=== PATIENT | female | born 1985 | race Two or more races ===

== ENCOUNTER 2016-10-19 11:50 | Emergency (ER) | payer OTHER ==
--- NOTE | ~2016-10-19 | ER ---
PATIENT'S NAME: JIMMY BASS [facility] AGE: 31 Y [address] ROOM: [place] [address] LOCATION: [facility] ADMIT DATE: 10/19/2016 ER/Outpatient Report DISCHARGE DATE: 10/19/2016 FAMILY PHYSICIAN: Lila Guevara MD ATTENDING PHYSICIAN: Chace Urbina Time of Arrival: 1157 hours. Time of Exam: 1210 hours. CHIEF COMPLAINT: Possible UTI. HISTORY OF PRESENT ILLNESS: The patient states that since Wednesday she has had pain and frequency with urination. Has not felt febrile, has not had any back pain. She has not any change in her bowel pattern. Has not been nauseated, no vomiting. ALLERGIES: NO KNOWN ALLERGIES. CURRENT MEDICATIONS: Taking [id number] AZO. PAST MEDICAL HISTORY: Benign. PAST SURGICAL HISTORY: Negative. SOCIAL HISTORY: She denies use of tobacco, drugs, or alcohol. REVIEW OF SYSTEMS: Negative other than those mentioned in the HPI. LABORATORY DATA: Clean-catch UA was obtained, which has 500 leukocytes, negative nitrites. Micro shows full-field white blood cells with moderate bacteria. Urine was completed, it was negative. IMPRESSION: Urinary tract infection. PLAN: A prescription was written for Bactrim DS. Home, rest. Increase her fluids. PATIENT'S NAME: JIMMY BASS [facility] AGE: 31 Y [address] ROOM: [place] [address] LOCATION: [facility] ADMIT DATE: 10/19/2016 ER/Outpatient Report DISCHARGE DATE: 10/19/2016 FAMILY PHYSICIAN: Lila Guevara MD ATTENDING PHYSICIAN: Chace Urbina Tylenol or ibuprofen as needed for fever or discomfort. Follow up with her primary provider in next 2 or 3 days if symptoms persist or worsen. She verbalized understanding. BARBARA COOMBS APRN FOR MD KIRSTIN WILCOX/rosa /[id number] d: 10/19/162201 t: 10/28/16 1058, OUTPATIENT REPORT
[~2016-10-19 11:50] MED LIST: ACETAMINOPHEN325 MG PO; FEOSOL325 MG PO; MOTRIN800 MG PO; PERCOCET 5-3251 EACH PO; PRENATAL 1+1)(P1 TAB PO
[2016-10-19 12:17] LABS: BILIRUBIN URINE NEGATIVE (NEGATIVE); BLOOD URINE 250 /UL (NEGATIVE); COLOR URINE BROWN (YELLOW); GLUCOSE URINE NEGATIVE (NEGATIVE); KETONE URINE NEGATIVE (NEGATIVE); LEUKOCYTES URINE 500 /UL (NEGATIVE); NITRITE URINE NEGATIVE (NEGATIVE); PROTEIN URINE 30 mg/dL (NEGATIVE); TURBIDITY URINE 3+ (CLEAR); UROBILINOGEN URINE NORMAL (NORMAL)
[2016-10-19 12:27] LABS: RBC URINE PACKED FIELD #/HPF (NEGATIVE); WBC URINE FULL FIELD #/HPF (NEGATIVE)
[2016-10-19 12:28] LABS: BACTERIA URINE MODERATE (NEGATIVE); MUCUS URINE 1+ (NEGATIVE); WBC CLUMPS URINE FEW (NEGATIVE)
== END 2016-10-19 12:56 | disposition disaster alternative care site (69) ==
LOC: GMED 11:50
PROVIDERS: Nurse Practitioner Family
DX: N39.0 Urinary tract infection, site not specified (principal)